=== PATIENT | female | born 1960 | race Hispanic/Latino ===

== ENCOUNTER 2017-09-25 21:51 | Emergency (ER) | payer MEDICARE, BC ==
[2017-09-25 22:43] VITALS: PULSE 76; RESP 16
[2017-09-25] MEDS ORDERED: Sodium Chloride 0.9% 1,000 ML IV STA (23:44)
--- NOTE | 2017-09-25 23:45 | ED PDOC ---
HPI: Abdomen Time Seen by Provider: 09/25/17 23:05 Chief Complaint (Nursing): Female Genitourinary Chief Complaint (Provider): left flank pain History Per: Patient History/Exam Limitations: no limitations Onset/Duration Of Symptoms: Hrs (3) Current Symptoms Are (Timing): Still Present Location Of Pain/Discomfort: LLQ Additional Complaint(s): 57 y/o female presents with left flank pain x 3 hours. Associated nausea. Patient states pain radiates to left groin, with associated "pressure" when urinating. Patient has history of kidney stones and states symptoms similar. Denies fever, vomiting, chest pain, shortness of breath, palpitations, hematuria. Past Medical History Reviewed: Historical Data, Nursing Documentation, Vital Signs Vital Signs: Last Vital Signs Temp 98.6 F 09/25/17 22:41 Pulse 76 09/25/17 22:41 Resp 16 09/25/17 22:41 BP 135/87 09/25/17 22:41 Pulse Ox 100 09/26/17 00:53 - Medical History PMH: Hypercholesterolemia, Kidney Stones - Surgical History Surgical History: Cholecystectomy - Family History Family History: States: Unknown Family Hx - Home Medications Home Medications: Ambulatory Orders Medication Instructions Recorded Ondansetron ODT [Zofran ODT] 4 mg PO Q6H PRN #16 odt 12/12/14 Oxycodone HCl/Acetaminophen 1 tab PO Q6 PRN #12 tab 12/12/14 [Percocet 325 mg-5 mg] Tamsulosin [Flomax] 0.4 mg PO DAILY #10 cap 12/12/14 Naproxen [Naprosyn] 500 mg PO BID PRN #15 tablet 09/16/15 Tamsulosin [Flomax] 0.4 mg PO DAILY #14 cap 09/16/15 oxyCODONE/Acetaminophen [Percocet 1 tab PO Q6 PRN #20 tab 09/16/15 5/325 mg Tab] Naproxen [Naprosyn] 500 mg PO Q12 PRN #20 tablet 09/26/17 Ondansetron ODT [Zofran ODT] 4 mg PO Q8 PRN #10 odt 09/26/17 Tamsulosin [Flomax] 0.4 mg PO DAILY #10 cap 09/26/17 oxyCODONE/Acetaminophen [Percocet 1 ea PO Q6 PRN #10 tab 09/26/17 5/325 mg Tab] - Allergies Allergies/Adverse Reactions: Allergies Allergy/AdvReac Type Severity Reaction Status Date / Time No Known Allergies Allergy Unverified 12/12/14 02:56 Review of Systems ROS Statement: Except As Marked, All Systems Reviewed And Found Negative Gastrointestinal: Positive for: Abdominal Pain Musculoskeletal: Positive for: Back Pain Physical Exam - Reviewed Nursing Documentation Reviewed: Yes Vital Signs Reviewed: Yes - Physical Exam Appears: Positive for: Well, Non-toxic, Uncomfortable Head Exam: Positive for: ATRAUMATIC, NORMAL INSPECTION, NORMOCEPHALIC Skin: Positive for: Normal Color Eye Exam: Positive for: Normal appearance ENT: Positive for: Normal ENT Inspection Cardiovascular/Chest: Positive for: Regular Rate, Rhythm Respiratory: Positive for: Normal Breath Sounds Gastrointestinal/Abdominal: Positive for: Bowel Sounds, Soft, Tenderness (left flank) Back: Positive for: Normal Inspection Extremity: Positive for: Normal ROM Neurologic/Psych: Positive for: Alert, Oriented - Laboratory Results Result Diagrams: 09/25/17 23:59 09/25/17 23:59 - ECG O2 Sat by Pulse Oximetry: 100 - Progress ED Course And Treament: labs, urine, IV fluids, IV toradol, IV zofran, CT renal protocol EXAM: CT Abdomen and Pelvis Without Intravenous Contrast CLINICAL HISTORY: 57 years old, female; Pain; Abdominal pain; Flank; Left; Prior surgery; Surgery date: 6+ months; Surgery type: Gastric band; Additional info: Left flank pain TECHNIQUE: Axial computed tomography images of the abdomen and pelvis without intravenous contrast. All CT scans at this facility use one or more dose reduction techniques, viz.: automated exposure control; ma/kV adjustment per patient size (including targeted exams where dose is matched to indication; i.e. head); or iterative reconstruction technique. Coronal and sagittal reformatted images were created and reviewed. COMPARISON: CT - ABD PELVIS W/O PO OR IV CONT 2015-09-16 14:49 FINDINGS: Lung bases: Unremarkable. No mass. No consolidation. ABDOMEN: Liver: Unremarkable. Gallbladder and bile ducts: There has been a cholecystectomy. No ductal dilation. Pancreas: Unremarkable. No ductal dilation. Spleen: Unremarkable. No splenomegaly. Adrenals: Unremarkable. No mass. Kidneys and ureters: There is mild left hydronephrosis and hydroureter most likely secondary to a 2 mm stone in the left bladder base. There are multiple bilateral renal collecting system calcifications. Stomach and bowel: There is a gastric band in place. The stomach is moderately distended with gas. Mild diffuse gas filled distended colon.There is no wall thickening or pericolonic stranding to suggest colitis. Mild diverticulosis is present in the sigmoid and descending colon. PELVIS: Appendix: A normal appendix is identified. Bladder: Unremarkable. No stones. Reproductive: Unremarkable as visualized. ABDOMEN and PELVIS: Intraperitoneal space: Unremarkable. No free air. No significant fluid collection. Bones/joints: Degenerative changes in the spine. No acute fracture. No dislocation. Soft tissues: Unremarkable. Vasculature: The vasculature demonstrates diffuse mild atherosclerotic calcification. No abdominal aortic aneurysm. Lymph nodes: Unremarkable. No enlarged lymph nodes. IMPRESSION: Mild left hydroureteronephrosis most likely secondary to a 2 mm stone in the left bladder base. Nephrolithiasis. Cholecystectomy. Distended stomach. Diverticulosis. No acute diverticulitis. Thank you for allowing us to participate in the care of your patient. On re-eval, patient resting comfortably; states pain improved. Patient educated on findings, discharged with rx flomax (dose given in ED), naproxen, zofran, percocet advised fluids. follow up urology. strainer given with instructions on us. return precautions given Disposition - Clinical Impression Clinical Impression: Ureteral calculus, left - Patient ED Disposition Is Patient to be Admitted: No Counseled Patient/Family Regarding: Studies Performed, Diagnosis, Need For Followup, Rx Given - Disposition Referrals: Silver Larkin Jr., MD [Staff Provider] - Disposition: Routine/Home Disposition Time: 01:18 Condition: IMPROVED Prescriptions: Naproxen [Naprosyn] 500 mg PO Q12 PRN #20 tablet PRN Reason: Pain, Moderate (4-7) Ondansetron ODT [Zofran ODT] 4 mg PO Q8 PRN #10 odt PRN Reason: Nausea/Vomiting oxyCODONE/Acetaminophen [Percocet 5/325 mg Tab] 1 ea PO Q6 PRN #10 tab PRN Reason: Pain, Severe (8-10) Tamsulosin [Flomax] 0.4 mg PO DAILY #10 cap Instructions: Kidney Stones in Adults, How to Strain Your Urine Forms: [employer] (Georgian)
[2017-09-26 00:02] LABS: BASO # 0.1 K/uL (0.0-0.2); BASO % 0.6 % (0.0-2.0); EOS # 0.2 K/uL (0.0-0.7); EOS % 2.8 % (0.0-4.0); LYMPH # 1.3 K/uL (1.0-4.3); LYMPH % 16.4 % (20.0-40.0); MEAN CELL VOLUME 88.7 fl (81.0-99.0); MEAN CORPUSCULAR HEMOGLOBIN 30.3 pg (27.0-31.0); MEAN CORPUSCULAR HGB CONC 34.2 g/dL (33.0-37.0); MEAN PLATELET VOLUME 8.5 fl (7.2-11.7); MONO # 0.5 K/uL (0.0-0.8); MONO % 5.9 % (0.0-10.0); NEUT # 5.8 K/uL (1.8-7.0); NEUT % 74.3 % (50.0-75.0); RBC 4.29 Mil/uL (3.80-5.20); RED CELL DISTRIBUTION WIDTH 13.8 % (11.5-14.5); WHITE BLOOD COUNT 7.9 K/uL (4.8-10.8)
[2017-09-26 00:06] LABS: SQUAMOUS EPITHIAL 1 /hpf (0-5); URINE BILIRUBIN NEGATIVE (NEGATIVE); URINE BLOOD MODERATE (NEGATIVE); URINE CLARITY SLIGHTY-CLOUDY (Clear); URINE COLOR YELLOW (YELLOW); URINE GLUCOSE (UA) NEG (Normal); URINE LEUKOCYTE ESTERASE MOD Leu/uL (Negative); URINE PROTEIN NEGATIVE (NEGATIVE); URINE UROBILINOGEN 0.2-1.0 mg/dL (0.2-1.0)
[2017-09-26 00:18] LABS: ALB/GLOB RATIO 1.4 (1.0-2.1); ALBUMIN 4.2 g/dL (3.5-5.0); ALT/SGPT 23 U/L (9-52); AST/SGOT 22 U/L (14-36); BLOOD UREA NITROGEN 17 mg/dl (7-17); CALCIUM 9.6 mg/dL (8.4-10.2); GFR AFRICAN-AMERICAN > 60; GFR NON-AFRICAN AMERICAN > 60
--- NOTE | 2017-09-26 00:48 | CT ---
EXAM: CT Abdomen and Pelvis Without Intravenous Contrast CLINICAL HISTORY: 57 years old, female; Pain; Abdominal pain; Flank; Left; Prior surgery; Surgery date: 6+ months; Surgery type: Gastric band; Additional info: Left flank pain TECHNIQUE: Axial computed tomography images of the abdomen and pelvis without intravenous contrast. All CT scans at this facility use one or more dose reduction techniques, viz.: automated exposure control; ma/kV adjustment per patient size (including targeted exams where dose is matched to indication; i.e. head); or iterative reconstruction technique. Coronal and sagittal reformatted images were created and reviewed. COMPARISON: CT - ABD PELVIS W/O PO OR IV CONT 2015-09-16 14:49 FINDINGS: Lung bases: Unremarkable. No mass. No consolidation. ABDOMEN: Liver: Unremarkable. Gallbladder and bile ducts: There has been a cholecystectomy. No ductal dilation. Pancreas: Unremarkable. No ductal dilation. Spleen: Unremarkable. No splenomegaly. Adrenals: Unremarkable. No mass. Kidneys and ureters: There is mild left hydronephrosis and hydroureter most likely secondary to a 2 mm stone in the left bladder base. There are multiple bilateral renal collecting system calcifications. Stomach and bowel: There is a gastric band in place. The stomach is moderately distended with gas. Mild diffuse gas filled distended colon.There is no wall thickening or pericolonic stranding to suggest colitis. Mild diverticulosis is present in the sigmoid and descending colon. PELVIS: Appendix: A normal appendix is identified. Bladder: Unremarkable. No stones. Reproductive: Unremarkable as visualized. ABDOMEN and PELVIS: Intraperitoneal space: Unremarkable. No free air. No significant fluid collection. Bones/joints: Degenerative changes in the spine. No acute fracture. No dislocation. Soft tissues: Unremarkable. Vasculature: The vasculature demonstrates diffuse mild atherosclerotic calcification. No abdominal aortic aneurysm. Lymph nodes: Unremarkable. No enlarged lymph nodes. IMPRESSION: Mild left hydroureteronephrosis most likely secondary to a 2 mm stone in the left bladder base. Nephrolithiasis. Cholecystectomy. Distended stomach. Diverticulosis. No acute diverticulitis.
[2017-09-26 01:54] VITALS: BP 113/72; TEMP 98.1; O2SAT 98
== END 2017-09-26 01:54 | disposition home or self-care (01) ==
LOC: H.ER 21:51
DX: N13.2 Hydronephrosis with renal and ureteral calculous obstruction (principal); E78.00 Pure hypercholesterolemia, unspecified; Z90.49 Acquired absence of other specified parts of digestive tract
CPT/HCPCS: 74176; 80053; 81003; 85025; 87086; 99284; J1885; J2405; J7040

== ENCOUNTER → 2018-05-27 | Emergency (ER) | payer MEDICARE, BC ==
[~2018-05-27] MED LIST: Cefdinir 300 MG CAP PO STA; Sodium Chloride 0.9% 1,000 ML IV ONE
[2018-05-27 00:48] VITALS: BP 183/85; PULSE 71; RESP 16; TEMP 98.5; O2SAT 99
[2018-05-27 01:35] LABS: BASO # 0.1 K/uL (0.0-0.2); EOS # 0.1 K/uL (0.0-0.7); EOS % 1.8 % (0.0-4.0); HEMOGLOBIN 13.2 g/dL (12.0-16.0); LYMPH # 1.3 K/uL (1.0-4.3); LYMPH % 22.3 % (20.0-40.0); MEAN CELL VOLUME 86.4 fl (81.0-99.0); MEAN CORPUSCULAR HEMOGLOBIN 29.7 pg (27.0-31.0); MEAN CORPUSCULAR HGB CONC 34.4 g/dL (33.0-37.0); MEAN PLATELET VOLUME 8.7 fl (7.2-11.7); MONO # 0.4 K/uL (0.0-0.8); MONO % 6.3 % (0.0-10.0); NEUT # 3.9 K/uL (1.8-7.0); NEUT % 68.6 % (50.0-75.0); NRBC % 0.1 % (0.0-0.0); RBC 4.45 Mil/uL (3.80-5.20); WHITE BLOOD COUNT 5.7 K/uL (4.8-10.8)
--- NOTE | 2018-05-27 01:45 | ED PDOC ---
HPI: Back Time Seen by Provider: 05/27/18 00:45 Chief Complaint (Nursing): Back Pain Chief Complaint (Provider): Right Flank Pain History Per: Patient History/Exam Limitations: no limitations Onset/Duration Of Symptoms: Days (x2) Additional Complaint(s): 57 y/o female presents to the ED for evaluation of right flank pain onset x2 days ago on Monday at 23:00. Patient reports she has a history of kidney stones and states this is a similar pain. Patient states she never required surgery for kidney stones. She took 1 percocet tab at 19:30 and another at 23:20 yesterday night. Patient reports having nausea on arrival to ED. She denies any fever, vomiting, hematuria, urinary frequency, dysuria, abdominal pain, or vaginal bleeding. PMD: Jose Past Medical History Reviewed: Historical Data, Nursing Documentation, Vital Signs Vital Signs: Last Vital Signs Temp 98.5 F 05/27/18 00:43 Pulse 71 05/27/18 00:43 Resp 16 05/27/18 00:43 BP 183/85 H 05/27/18 00:43 Pulse Ox 99 05/27/18 00:43 - Medical History PMH: Hypercholesterolemia, Kidney Stones - Surgical History Surgical History: Cholecystectomy Other surgeries: Lap Band - Family History Family History: States: Unknown Family Hx - Home Medications Home Medications: Ambulatory Orders Medication Instructions Recorded Ondansetron ODT [Zofran ODT] 4 mg PO Q6H PRN #16 odt 12/12/14 Oxycodone HCl/Acetaminophen 1 tab PO Q6 PRN #12 tab 12/12/14 [Percocet 325 mg-5 mg] Tamsulosin [Flomax] 0.4 mg PO DAILY #10 cap 12/12/14 Naproxen [Naprosyn] 500 mg PO BID PRN #15 tablet 09/16/15 Tamsulosin [Flomax] 0.4 mg PO DAILY #14 cap 09/16/15 oxyCODONE/Acetaminophen [Percocet 1 tab PO Q6 PRN #20 tab 09/16/15 5/325 mg Tab] Ondansetron ODT [Zofran ODT] 4 mg PO Q8 PRN #10 odt 09/26/17 RX: Naproxen [Naprosyn] 500 mg PO Q12 PRN #20 tablet 09/26/17 Tamsulosin [Flomax] 0.4 mg PO DAILY #10 cap 09/26/17 oxyCODONE/Acetaminophen [Percocet 1 ea PO Q6 PRN #10 tab 09/26/17 5/325 mg Tab] Cefdinir [Omnicef] 300 mg PO BID #20 cap 05/27/18 Ondansetron HCl [Zofran] 4 mg PO Q6 PRN #15 tablet 05/27/18 RX: Naproxen 500 mg PO BID PRN #20 tab 05/27/18 RX: traMADol [Ultram] 50 mg PO Q6 PRN #12 tab 05/27/18 Tamsulosin HCl [Flomax] 0.4 mg PO DAILY #10 tab 05/27/18 - Allergies Allergies/Adverse Reactions: Allergies Allergy/AdvReac Type Severity Reaction Status Date / Time No Known Allergies Allergy Verified 05/27/18 00:42 Review of Systems ROS Statement: Except As Marked, All Systems Reviewed And Found Negative Constitutional: Negative for: Fever Gastrointestinal: Negative for: Vomiting, Abdominal Pain Genitourinary Female: Negative for: Dysuria, Frequency, Hematuria, Vaginal Bleeding Musculoskeletal: Positive for: Back Pain (right flank) Physical Exam - Reviewed Nursing Documentation Reviewed: Yes Vital Signs Reviewed: Yes - Physical Exam Comments: GENERAL APPEARANCE: Patient is awake, alert, oriented x3, uncomfortable in painful distress. Patient is rocking on the ED bed. SKIN: Warm, dry; (-) cyanosis. EYES: (-) conjunctival pallor, (-) scleral icterus. ENMT: Mucous membranes moist. Airway patent, (-) stridor. NECK: Supple, FROM CHEST AND RESPIRATORY: (-) rales, (-) rhonchi, (-) wheezes; breath sounds equal bilaterally. Respirations nonlabored. HEART AND CARDIOVASCULAR: (-) irregularity ABDOMEN AND GI: Soft (-) distention (+) Right CVA tenderness (-) guarding (-) rigidity. BACK: (+) right flank tenderness (-) midline tenderness EXTREMITIES: (-) deformity NEURO AND PSYCH: Mental status as above; (-) focal findings. Gait: steady. Speech: clear. (-) facial asymmetry (-) aphasia - Laboratory Results Result Diagrams: 05/27/18 01:26 05/27/18 01:26 - ECG O2 Sat by Pulse Oximetry: 99 (RA) Pulse Ox Interpretation: Normal Medical Decision Making Medical Decision Making: Time: 01:05 Initial Impression: flank pain, renal colic Initial Plan: * CMP * Lipase * CBC w/ diff * IV Fluids * Toradol 30 mg * Zofran 8 mg * Urine culture * UA 0230 CBC and CMP grossly unremarkable. Lipase WNL. 0250 On re-evaluation, patient reports improvement of pain. Resting comfortably. Pending urine studies. 0420 U/A with moderate hematuria. CT abd/pelvis without contrast ordered for further evaluation of possible nephrolithiasis. [address] requesting additional pain medication. Tramadol 100mg PO ordered. Pending CT read. 05:55 CT Abd Pelvis FINDINGS: Small sliding hiatal hernia. Laparoscopic gastric banding device is again noted. 4 mm obstructing stone of the right ureterovesical junction. Not present on prior exam. Mild right hydroureteronephrosis, not present on prior exam. Bilateral nonobstructing renal stones ranging in size between 3 and 5 mm. Fluid filled distended stomach. Probably reactive gastroparesis. Mild constipation. Uncomplicated colonic diverticulosis. The visualized lung bases are unremarkable. Normal unenhanced liver. Absent gallbladder and nondilated extrahepatic biliary system. Normal unenhanced spleen. Normal pancreas. Normal bilateral adrenal glands. Normal size of the right kidney. There is no right renal mass. Normal size of the left kidney. There is no left renal mass. There is no left hydronephrosis. Normal visualized left ureter. Normal visualized stomach. Normal small intestine. Normal colon. The appendix is visualized and appears normal. There is no demonstrated peritoneal fluid. Normal abdominal aorta. Normal inferior vena cava. Normal retroperitoneum. Normal urinary bladder. There is no pelvic mass lesion or lymphadenopathy. There is no pelvic fluid. Normal abdominal wall. Moderate diffuse spondylosis. IMPRESSION: Small sliding hiatal hernia. Laparoscopic gastric banding device is again noted. 4 mm obstructing stone of the right ureterovesical junction. Not present on prior exam. Mild right hydroureteronephrosis, not present on prior exam. Bilateral nonobstructing renal stones ranging in size between 3 and 5 mm. Fluid filled distended stomach. Probably reactive gastroparesis. Mild constipation. Uncomplicated colonic diverticulosis. In light of CT results, consult placed to urology optimization specialist. 0605 Repeat HR: 66 Repeat BP: 126/79 Case discussed with urology optimization specialist, Dr Larkin, who recommends treatment with A bx, Flomax, and pain medication and patient can follow up outpatient with urology. Omnicef 300mg and Flomax 0.8mg PO ordered. On re-evaluation, patient reports improvement of symptoms. On exam, patient remains AAOx3, in no acute distress. Lungs clear to auscultation, cardiac RRR, repeat neuro exam shows no focal findings. Vitals stable. Lab/Diagnostic results d/w the patient in great detail. Diagnosis of renal colic d/w the patient. Based on history, exam and diagnostic results, plan will be for outpatient follow up with urology. Patient instructed to follow-up with pmd / referral provided / the clinic in 1- 2 days without fail. Advised to take medication as prescribed. [facility] any new or worsening symptoms. Patient states she fully agrees with and understands discharge instructions. States that she agrees with the plan and disposition. Verbalized and repeated discharge instructions and plan. I have given the patient opportunity to ask any additional questions. Scribe Attestation: Documented by Ab Krishnamurthy acting as a scribe for Tiera Decker PA-C. Provider Scribe Attestation: All medical record entries made by the Scribe were at my direction and personally dictated by me. I have reviewed the chart and agree that the record accurately reflects my personal performance of the history, physical exam, medical decision making, and the department course for this patient. I have also personally directed, reviewed, and agree with the discharge instructions and disposition. Disposition - Clinical Impression Clinical Impression: Renal colic, Nephrolithiasis, Flank pain, acute - Patient ED Disposition Is Patient to be Admitted: No Counseled Patient/Family Regarding: Studies Performed, Diagnosis, Need For Followup, Rx Given - Disposition Referrals: Silver Larkin Jr., MD [Staff Provider] - Javan Garsia MD [Staff Provider] - Disposition: Routine/Home Disposition Time: 06:10 Condition: STABLE Additional Instructions: The emergency medical care you received today was directed at your acute symptoms. If you were prescribed any medication, please fill it and take as directed. It may take several days for your symptoms to resolve. Return to the Emergency Department if your symptoms worsen, do not improve, or if you have any other problems. Please contact your doctor in 2 days for re-evaluation and follow up / or call one of the physicians/clinics you have been referred to that are listed on the Patient Visit Information form that is included in your discharge packet. Bring any paperwork you were given at discharge with you along with any medications you are taking to your follow up visit. Our treatment cannot replace ongoing medical care by a primary care provider (PCP) outside of the emergency department. Prescriptions: Cefdinir [Omnicef] 300 mg PO BID #20 cap RX: Naproxen 500 mg PO BID PRN #20 tab PRN Reason: Pain, Moderate (4-7) Ondansetron HCl [Zofran] 4 mg PO Q6 PRN #15 tablet PRN Reason: Nausea/Vomiting Tamsulosin HCl [Flomax] 0.4 mg PO DAILY #10 tab RX: traMADol [Ultram] 50 mg PO Q6 PRN #12 tab PRN Reason: Pain, Severe (8-10) Instructions: Kidney Stones in Adults, Flank Pain, Renal Colic, Nausea and Vomiting, Adult (DC), How to Strain Your Urine Forms: [employer] (Ivorian) Print Language: WELSH - POA Present On Arrival: None Results - Lab Results Lab Results: 05/27/18 05/27/18 05/27/18 03:10 01:26 01:26 WBC 5.7 RBC 4.45 Hgb 13.2 Hct 38.4 MCV 86.4 D MCH 29.7 MCHC 34.4 RDW 14.0 Plt Count 245 MPV 8.7 Neut % (Auto) 68.6 Lymph % (Auto) 22.3 [place] % (Auto) 6.3 Eos % (Auto) 1.8 Baso % (Auto) 1.0 Neut # (Auto) 3.9 Lymph # (Auto) 1.3 [place] # (Auto) 0.4 Eos # (Auto) 0.1 Baso # (Auto) 0.1 Sodium 140 Potassium 3.9 Chloride 100 Carbon Dioxide 27 Anion Gap 17 BUN 18 H Creatinine 1.1 Est GFR ( Amer) > 60 Est GFR (Non-Af Amer) 51 Random Glucose 114 H Calcium 10.1 Total Bilirubin 0.6 AST 21 ALT 13 Alkaline Phosphatase 66 Total Protein 7.9 Albumin 4.5 Globulin 3.3 Albumin/Globulin Ratio 1.4 Lipase 148 Urine Color Yellow Urine Clarity Clear Urine pH 5.0 Ur Specific [place] 1.026 Urine Protein Negative Urine Glucose (UA) Neg Urine Ketones Negative Urine Blood Moderate Urine Nitrate Negative Urine Bilirubin Negative Urine Urobilinogen 0.2-1.0 Ur Leukocyte Esterase Trace Urine RBC (Auto) 28 H Urine Microscopic WBC 1 Ur Squamous Epith Cells 1
[2018-05-27 01:48] LABS: ALB/GLOB RATIO 1.4 (1.0-2.1); ALBUMIN 4.5 g/dL (3.5-5.0); ALT/SGPT 13 U/L (9-52); AST/SGOT 21 U/L (14-36); BLOOD UREA NITROGEN 18 mg/dl (7-17); CALCIUM 10.1 mg/dL (8.4-10.2); GFR NON-AFRICAN AMERICAN 51; LIPASE 148 U/L (23-300)
[2018-05-27 03:37] LABS: SQUAMOUS EPITHIAL 1 /hpf (0-5); URINE BILIRUBIN NEGATIVE (NEGATIVE); URINE BLOOD MODERATE (NEGATIVE); URINE CLARITY CLEAR (Clear); URINE COLOR YELLOW (YELLOW); URINE GLUCOSE (UA) NEG (NEGATIVE); URINE LEUKOCYTE ESTERASE TRACE Leu/uL (Negative); URINE PROTEIN NEGATIVE (NEGATIVE); URINE UROBILINOGEN 0.2-1.0 mg/dL (0.2-1.0)
--- NOTE | 2018-05-27 16:30 | CT ---
Date of service: 05/27/2018 PROCEDURE: CT Abdomen and Pelvis without intravenous contrast HISTORY: r/o nephrolithiasis COMPARISON: Noncontrast abdomen pelvis CT 09/26/2017. TECHNIQUE: Helical CT of the abdomen and pelvis was performed without oral or intravenous contrast as per referring physician request. Coronal and sagittal reformats were generated. Contrast dose: None Radiation dose: Total exam DLP = 803.35 mGy-cm. This CT exam was performed using one or more of the following dose reduction techniques: Automated exposure control, adjustment of the mA and/or kV according to patient size, and/or use of iterative reconstruction technique. FINDINGS: LOWER THORAX: Unremarkable. LIVER: Unremarkable. No gross lesion or ductal dilatation. GALLBLADDER AND BILE DUCTS: Prior cholecystectomy reiterated. PANCREAS: Unremarkable. No gross lesion or ductal dilatation. SPLEEN: Unremarkable. ADRENALS: Unremarkable. No mass. KIDNEYS AND URETERS: A few punctate intrarenal calculi identified both kidneys with a 2 mm calculus identified at the right urinary bladder base. Right perinephric reaction is greater than that seen at the left and there is limited residual right hydronephrosis and hydroureter with calculus suspected common from the right ureter. VASCULATURE: Nonaneurysmal abdominal aortic calcific atherosclerotic changes are identified. BOWEL: Nonobstructed bowel. Moderate feature retained fecal material scattered throughout the colon. Infrequent sigmoid diverticulosis without acute changes. No small bowel obstruction pattern. Post lap band changes are again seen related to the stomach. APPENDIX: Not identified. No CT evidence of appendicitis. PERITONEUM: Unremarkable. No free fluid. No free air. LYMPH NODES: Unremarkable. No enlarged lymph nodes. BLADDER: Unremarkable. REPRODUCTIVE: Unremarkable. BONES: No acute fracture. OTHER FINDINGS: None. IMPRESSION: A 2 mm calculus identified at the urinary bladder base toward the right with residual right hydroureteronephrosis remaining. Prior left hydroureter and hydronephrosis appears to have resolved compared to prior CT 09/26/2017. A few punctate intrarenal calculi identified bilaterally. Lesser additional findings including lap band device in situ once again, as discussed above. Preliminary report provided by Giuseppe, 05/27/2018, 5:55 a.m..
== END | disposition home or self-care (01) ==
LOC: H.ER 00:32
DX: N20.0 Calculus of kidney (principal); R10.9 Unspecified abdominal pain
CPT/HCPCS: 74176; 80053; 81003; 83690; 85025; 87086; 96374; 96375; 99281; J1885; J2405; J7040

== ENCOUNTER 2018-06-25 09:22 | Emergency (ER) | payer MEDICARE, BC ==
--- NOTE | 2018-06-25 10:46 | ED PDOC ---
HPI: General Adult Time Seen by Provider: 06/25/18 10:27 Chief Complaint (Nursing): Lower Extremity Problem/Injury Chief Complaint (Provider): incontinence, left leg pain History Per: Patient History/Exam Limitations: no limitations Onset/Duration Of Symptoms: Days (x2) Additional Complaint(s): Neva Leiva is a 57 year old female, with a past medical history of herniated disc, kidney stones and lap band, who presents to the emergency department for multiple complaints including urinary incontinence, nausea, dry mouth and feeling tired ongoing for x2 days. Patient also reports a chronic left leg pain that starts at the ankle and radiates to left side of hip. Patient denies any difficulty ambulating but states pain is worst when laying down. She denies any fever, chills, vomiting, diarrhea, dysuria, back pain, weakness, numbness or tingling. No further medical complaints. PMD: Javan Garsia Past Medical History Reviewed: Historical Data, Nursing Documentation, Vital Signs Vital Signs: Last Vital Signs Temp 98.5 F 06/25/18 09:37 Pulse 67 06/25/18 09:37 Resp 18 06/25/18 09:37 BP 124/79 06/25/18 09:37 Pulse Ox 98 06/25/18 09:37 - Medical History PMH: Hypercholesterolemia, Kidney Stones Other PMH: herniated disc - Surgical History Surgical History: Cholecystectomy - Family History Family History: States: Unknown Family Hx - Social History Current smoker - smoking cessation education provided: Yes (Current some days smoker) Alcohol: Social Drugs: Denies - Home Medications Home Medications: Ambulatory Orders Medication Instructions Recorded Ondansetron ODT [Zofran ODT] 4 mg PO Q6H PRN #16 odt 12/12/14 Oxycodone HCl/Acetaminophen 1 tab PO Q6 PRN #12 tab 12/12/14 [Percocet 325 mg-5 mg] Tamsulosin [Flomax] 0.4 mg PO DAILY #10 cap 12/12/14 Naproxen [Naprosyn] 500 mg PO BID PRN #15 tablet 09/16/15 Tamsulosin [Flomax] 0.4 mg PO DAILY #14 cap 09/16/15 oxyCODONE/Acetaminophen [Percocet 1 tab PO Q6 PRN #20 tab 09/16/15 5/325 mg Tab] Naproxen [Naprosyn] 500 mg PO Q12 PRN #20 tablet 09/26/17 Ondansetron ODT [Zofran ODT] 4 mg PO Q8 PRN #10 odt 09/26/17 Tamsulosin [Flomax] 0.4 mg PO DAILY #10 cap 09/26/17 oxyCODONE/Acetaminophen [Percocet 1 ea PO Q6 PRN #10 tab 09/26/17 5/325 mg Tab] Cefdinir [Omnicef] 300 mg PO BID #20 cap 05/27/18 Naproxen 500 mg PO BID PRN #20 tab 05/27/18 Ondansetron HCl [Zofran] 4 mg PO Q6 PRN #15 tablet 05/27/18 Tamsulosin HCl [Flomax] 0.4 mg PO DAILY #10 tab 05/27/18 traMADol [Ultram] 50 mg PO Q6 PRN #12 tab 05/27/18 Cephalexin [cephalexin] 500 mg PO QID #28 cap 06/25/18 Phenazopyridine [Pyridium] 200 mg PO TID PRN #6 tab 06/25/18 - Allergies Allergies/Adverse Reactions: Allergies Allergy/AdvReac Type Severity Reaction Status Date / Time No Known Allergies Allergy Verified 06/25/18 10:07 Review of Systems ROS Statement: Except As Marked, All Systems Reviewed And Found Negative Constitutional: Positive for: Other (fatigue). Negative for: Fever, Chills ENT: Positive for: Other (dry mouth) Gastrointestinal: Positive for: Nausea. Negative for: Vomiting, Diarrhea Genitourinary Female: Positive for: Incontinence Musculoskeletal: Positive for: Leg Pain (left), Other (chronic left hip) Neurological: Negative for: Weakness, Numbness (tingling) Physical Exam - Reviewed Nursing Documentation Reviewed: Yes Vital Signs Reviewed: Yes - Physical Exam Appears: Positive for: No Acute Distress Head Exam: Positive for: ATRAUMATIC, NORMAL INSPECTION, NORMOCEPHALIC Skin: Positive for: Normal Color, Warm, Dry Eye Exam: Positive for: Normal appearance, EOMI, PERRL Neck: Positive for: Normal, Painless ROM Cardiovascular/Chest: Positive for: Regular Rate, Rhythm. Negative for: Murmur Respiratory: Positive for: Normal Breath Sounds. Negative for: Respiratory Distress Gastrointestinal/Abdominal: Positive for: Normal Exam, Soft. Negative for: Tenderness, Guarding, Rebound Back: Positive for: Normal Inspection (back nontender). Negative for: L CVA Tenderness, R CVA Tenderness, Vertebral Tenderness Extremity: Positive for: Normal ROM (upper and lower extremities). Negative for: Tenderness (hip and lower extremities), Calf Tenderness, Deformity, Swelling (lower extremities) Neurologic/Psych: Positive for: Alert, Oriented. Negative for: Motor/Sensory Deficits - Laboratory Results Result Diagrams: 06/25/18 11:40 06/25/18 11:40 - ECG O2 Sat by Pulse Oximetry: 98 (RA) Pulse Ox Interpretation: Normal Medical Decision Making Medical Decision Making: Time: 10:27 Initial Impression: Initial Plan: --CMP --TSH --Urine dipstick --CBC w/ differential --PTT --PT --Zofran Inj 4 mg IV --Urinalysis --Reevaluation Scribe Attestation: Documented by Shan Park, acting as a scribe for Lucy Fulton MD Provider Scribe Attestation: All medical record entries made by the Scribe were at my direction and personally dictated by me. I have reviewed the chart and agree that the record accurately reflects my personal performance of the history, physical exam, medical decision making, and the department course for this patient. I have also personally directed, reviewed, and agree with the discharge instructions and disposition. Disposition - Clinical Impression Clinical Impression: UTI (urinary tract infection) - Disposition Referrals: Javan Garsia MD [Staff Provider] - Disposition: Routine/Home Disposition Time: 15:34 Condition: STABLE Prescriptions: Cephalexin [cephalexin] 500 mg PO QID #28 cap Phenazopyridine [Pyridium] 200 mg PO TID PRN #6 tab PRN Reason: Bladder Spasm Instructions: Urinary Tract Infections in Adults Forms: J[employer]i (Macedonian)
[2018-06-25 11:48] LABS: BASO % 0.5 % (0.0-2.0); EOS % 0.9 % (0.0-4.0); HEMOGLOBIN 12.6 g/dL (12.0-16.0); LYMPH # 0.8 K/uL (1.0-4.3); LYMPH % 23.8 % (20.0-40.0); MEAN CELL VOLUME 86.3 fl (81.0-99.0); MEAN CORPUSCULAR HEMOGLOBIN 29.2 pg (27.0-31.0); MEAN CORPUSCULAR HGB CONC 33.9 g/dL (33.0-37.0); MEAN PLATELET VOLUME 8.7 fl (7.2-11.7); MONO # 0.3 K/uL (0.0-0.8); NEUT # 2.1 K/uL (1.8-7.0); NEUT % 64.8 % (50.0-75.0); NRBC % 0.1 % (0.0-0.0); RBC 4.3 Mil/uL (3.80-5.20); RED CELL DISTRIBUTION WIDTH 13.8 % (11.5-14.5); WHITE BLOOD COUNT 3.2 K/uL (4.8-10.8)
[2018-06-25 11:53] LABS: SQUAMOUS EPITHIAL 4 /hpf (0-5); URINE AMORPHOUS SEDIMENT RARE /ul (<OCC); URINE BACTERIA RARE (<OCC); URINE BILIRUBIN NEGATIVE (NEGATIVE); URINE BLOOD SMALL (NEGATIVE); URINE CLARITY CLOUDY (Clear); URINE COLOR YELLOW (YELLOW); URINE GLUCOSE (UA) NEG (NEGATIVE); URINE LEUKOCYTE ESTERASE LARGE Leu/uL (Negative); URINE PROTEIN NEGATIVE (NEGATIVE)
[2018-06-25 11:55] LABS: PROTHROMBIN TIME 11.9 Seconds (9.8-13.1)
[2018-06-25 11:57] LABS: PARTIAL THROMBOPLASTIN TIME 32.5 Seconds (25.6-37.1)
[2018-06-25 12:16] LABS: ALB/GLOB RATIO 1.3 (1.0-2.1); ALBUMIN 4.3 g/dL (3.5-5.0); ALT/SGPT 18 U/L (9-52); AST/SGOT 38 U/L (14-36); BLOOD UREA NITROGEN 21 mg/dl (7-17); CALCIUM 9.2 mg/dL (8.4-10.2); GFR NON-AFRICAN AMERICAN > 60
[2018-06-25] MEDS ORDERED: cefTRIAXone (Rocephin) 1 gm Inj ONE (15:11)
[2018-06-25 17:52] VITALS: BP 126/79; PULSE 69; RESP 15; TEMP 97.7
[2018-07-04 15:52] VITALS: O2SAT 98
== END 2018-06-25 17:00 | disposition home or self-care (01) ==
LOC: H.ER 09:22
DX: N39.0 Urinary tract infection, site not specified (principal); F17.200 Nicotine dependence, unspecified, uncomplicated; Z87.442 Personal history of urinary calculi; E78.00 Pure hypercholesterolemia, unspecified
CPT/HCPCS: 80053; 81003; 82948; 84443; 85025; 85610; 85730; 96361; 96374; 99285; J0696; J2405